=== PATIENT | female | born 1995 | race Two or more races ===

== ENCOUNTER 2016-12-29 19:26 | Emergency (ER) | payer MEDICAID ==
[~2016-12-29] VITALS: Ht 167.6 cm; Wt 93.5 kg
[2016-12-29] MEDS ORDERED: LIDOCAINE 1%, 20ML SQ ONE (20:00)
[2016-12-29] MEDS ORDERED: LIDOCAINE 1%, 20ML ONE (20:04)
== END 2016-12-29 21:12 | disposition home or self-care (01) ==
LOC: EDBD → MERGE 21:06 → ED 21:06
DX: L05.01 Pilonidal cyst with abscess (principal)
CPT/HCPCS: 10080

== ENCOUNTER 2016-12-31 09:45 | Emergency (ER) | payer MEDICAID ==
[~2016-12-31] VITALS: Ht 167.6 cm; Wt 94.0 kg
== END 2016-12-31 11:03 | disposition home or self-care (01) ==
LOC: EDBD → MERGE 10:50 → ED 10:50
DX: Z48.01 Encounter for change or removal of surgical wound dressing (principal)
CPT/HCPCS: 99282